=== PATIENT | female | born 1945 | race Caucasian/White ===

== ENCOUNTER 2024-09-23 17:29 | Inpatient (IN) | payer OTHER, MEDICARE ==
[2024-09-23 22:07] LABS: BASO % 0.9 % (0-2.0); EOS % 1.2 % (0-4.5); HEMATOCRIT 44.6 % (32.4-45.2); HEMOGLOBIN 14.3 GM/dL (10.7-15.3); LYMPH % 17.7 % (8-40); MCH 28.9 pg (25.7-33.7); MCHC 32.1 g/dl (32.0-36.0); MEAN CELL VOLUME 90.3 fl (80-96); MONO % 8.1 % (3.8-10.2); NEUT % 72.1 % (42.8-82.8); PLATELET COUNT 251 10^3/uL (134-434); RBC 4.94 M/mm3 (3.60-5.2); RDW 14.5 % (11.6-15.6); WHITE BLOOD COUNT 11.4 K/mm3 (4.0-10.0)
[2024-09-23 22:25] LABS: POTASSIUM 3.9 mmol/L (3.5-5.1)
[2024-09-23 22:27] LABS: CALCIUM 9.3 mg/dL (8.5-10.1)
[2024-09-23 22:28] LABS: ALBUMIN 3.5 g/dl (3.4-5.0); BLOOD UREA NITROGEN 18.4 mg/dL (7-18); MAGNESIUM 2.1 mg/dL (1.8-2.4)
[2024-09-23 22:31] LABS: BILIRUBIN,TOTAL 0.6 mg/dL (0.2-1); CREATININE 0.9 mg/dL (0.55-1.3); TOT PROT 6.5 g/dl (6.4-8.2)
[2024-09-24 00:49] LABS: EPI CELLS 6 /uL (0-25.1); HYALINE CASTS 0 /uL (0-3.1); PH,URINE 7.5 (5.0-8.0); URINE APPEARANCE CLEAR; URINE BACTERIA 24 /uL (0-1359); URINE BILIRUBIN NEGATIVE (NEGATIVE); URINE COLOR YELLOW; URINE GLUCOSE (UA) NEGATIVE (NEGATIVE); URINE KETONE NEGATIVE (NEGATIVE); URINE LEUK ESTERASE TRACE (NEGATIVE); URINE NITRITE NEGATIVE (NEGATIVE); URINE PROTEIN NEGATIVE (NEGATIVE); URINE RBC 9 /uL (0-23.9); URINE WBC 15 /uL (0-25.8)
[2024-09-24] MEDS: oxyCODONE HCL 5 MG TABLET PO ONE (05:13)
[2024-09-24] MEDS: ACETAMINOPHEN 325 MG TABLET (FP) PO ONE (05:14)
[2024-09-24 07:49] LABS: CHLORIDE 107 mmol/L (98-107); POTASSIUM 3.6 mmol/L (3.5-5.1); SODIUM 139 mmol/L (136-145)
[2024-09-24 07:55] LABS: CALCIUM 9.1 mg/dL (8.5-10.1)
[2024-09-24 07:56] LABS: ALBUMIN 3.5 g/dl (3.4-5.0); ANION GAP 8 mmol/L (4-13); BLOOD UREA NITROGEN 14.6 mg/dL (7-18); CO2 24 mmol/L (21-32); GLUCOSE,RANDOM 88 mg/dL (74-106)
[2024-09-24 07:59] LABS: CREATININE 0.8 mg/dL (0.55-1.3); PHOSPHOROUS 2.9 mg/dL (2.5-4.9); SGOT/AST 65 U/L (15-37); SGPT/ALT 115 U/L (13-61)
[2024-09-24 08:00] LABS: BILIRUBIN,TOTAL 0.8 mg/dL (0.2-1)
[2024-09-24 08:01] LABS: TOT PROT 6.5 g/dl (6.4-8.2)
[2024-09-24 08:02] LABS: ALK PHOS 154 U/L (45-117)
[2024-09-24 08:15] LABS: BASO % 0.4 % (0-2.0); EOS % 1.1 % (0-4.5); HEMATOCRIT 44.3 % (32.4-45.2); HEMOGLOBIN 14.9 GM/dL (10.7-15.3); MCH 29.9 pg (25.7-33.7); MCHC 33.7 g/dl (32.0-36.0); MEAN CELL VOLUME 88.8 fl (80-96); MEAN PLT VOLUME 9.1 fl (7.5-11.1); MONO % 8.7 % (3.8-10.2); NEUT % 70.8 % (42.8-82.8); PLATELET COUNT 234 10^3/uL (134-434); RBC 4.99 M/mm3 (3.60-5.2); RDW 14.1 % (11.6-15.6); WHITE BLOOD COUNT 10.9 K/mm3 (4.0-10.0)
[2024-09-24] MEDS: FLUoxetine HCL 20 MG CAPSULE PO SCH (12:30)
[2024-09-24] MEDS: ENOXAPARIN NA (PORCINE) 40 MG/0.4 ML DISP.SYRIN SQ SCH (12:30)
[2024-09-24] MEDS: amLODIPine BESYLATE 2.5 MG TABLET (FP) PO SCH (12:31)
[2024-09-24] MEDS ORDERED: ALPRAZolam 0.25 MG TABLET PO PRN (14:55)
[2024-09-24] MEDS: MINERAL OIL/PET HY-PHL TOPICAL OINTMENT 454 GM JAR TP SCH (19:17)
[2024-09-24] MEDS: MIRTAZAPINE 15 MG TABLET (FP) PO SCH (21:49)
[2024-09-24] MEDS: ALPRAZolam 0.25 MG TABLET PO PRN (21:50)
[2024-09-24] MEDS: QUEtiapine FUMARATE 25 MG TABLET PO SCH (21:50)
[2024-09-24] MEDS ORDERED: ROSUVASTATIN CA 20 MG TABLET PO SCH (22:00)
[2024-09-25 07:50] LABS: HEMATOCRIT 44.1 % (32.4-45.2); HEMOGLOBIN 14.9 GM/dL (10.7-15.3); MCH 30.2 pg (25.7-33.7); MCHC 33.8 g/dl (32.0-36.0); MEAN CELL VOLUME 89.4 fl (80-96); MEAN PLT VOLUME 9.3 fl (7.5-11.1); PLATELET COUNT 222 10^3/uL (134-434); RBC 4.93 M/mm3 (3.60-5.2); RDW 14.4 % (11.6-15.6); WHITE BLOOD COUNT 9.1 K/mm3 (4.0-10.0)
[2024-09-25 08:09] LABS: POTASSIUM 3.9 mmol/L (3.5-5.1)
[2024-09-25 08:16] LABS: ALBUMIN 3.3 g/dl (3.4-5.0); BLOOD UREA NITROGEN 17.2 mg/dL (7-18)
[2024-09-25 08:19] LABS: BILIRUBIN,TOTAL 0.7 mg/dL (0.2-1); CREATININE 0.8 mg/dL (0.55-1.3); TOT PROT 6.1 g/dl (6.4-8.2)
[2024-09-25] MEDS: oxyCODONE HCL 5 MG TABLET PO PRN (09:08)
[2024-09-25] MEDS: QUEtiapine FUMARATE 25 MG TABLET PO SCH (23:33)
[2024-09-26] MEDS: MELATONIN 5 MG TABLETS PO ONE (00:55)
[2024-09-26 08:00] LABS: ALBUMIN 3.2 g/dl (3.4-5.0); CALCIUM 9.1 mg/dL (8.5-10.1)
[2024-09-26 08:01] LABS: BLOOD UREA NITROGEN 25.8 mg/dL (7-18)
[2024-09-26 08:04] LABS: CREATININE 0.9 mg/dL (0.55-1.3)
[2024-09-26 08:06] LABS: TOT PROT 5.8 g/dl (6.4-8.2)
[2024-09-26 08:07] LABS: BILIRUBIN,TOTAL 0.7 mg/dL (0.2-1)
[2024-09-26 15:40] VITALS: RESP 18
[2024-09-26] MEDS: ALPRAZolam 0.25 MG TABLET PO PRN (16:23)
[2024-09-26] MEDS: PATIENT'S OWN MEDICATION (NON-FORMULARY) (Tizanidine Hcl [Tizanidine Hcl] 2 MG Tablet) PO SCH (17:53)
[2024-09-26] MEDS: oxyCODONE HCL 5 MG TABLET PO PRN (20:41)
[2024-09-26] MEDS: MIRTAZAPINE 15 MG TABLET (FP) PO SCH (22:13)
[2024-09-27 07:55] VITALS: BMI 19.7
[2024-09-27] MEDS: amLODIPine BESYLATE 2.5 MG TABLET (FP) PO SCH (10:54)
[2024-09-27] MEDS: ENOXAPARIN NA (PORCINE) 40 MG/0.4 ML DISP.SYRIN SQ SCH (10:54)
[2024-09-27] MEDS: FLUoxetine HCL 20 MG CAPSULE PO SCH (10:54)
[2024-09-27] MEDS: MINERAL OIL/PET HY-PHL TOPICAL OINTMENT 454 GM JAR TP SCH (10:54)
[2024-09-27] MEDS: NICOTINE POLACRILEX 2 MG GUM BUC PRN (22:20)
[2024-09-28] MEDS: LIDOCAINE 5% TOPICAL PATCH TP SCH (11:44)
[2024-09-28] MEDS: POLYETHYLENE GLYCOL (HEALTHYLAX) 3350 17 GM PACKET PO SCH (14:12)
[2024-09-28] MEDS: oxyCODONE HCL 5 MG TABLET PO PRN (21:00)
[2024-09-28] MEDS: LIDOCAINE PATCH REMOVAL MC SCH (21:00)
[2024-09-29] MEDS: hydrOXYzine PAMOATE 25 MG CAPSULE (FP) PO ONE (20:15)
[2024-09-30] MEDS: CycloBENZAprine HCL 5 MG TABLET PO SCH (10:30)
[2024-10-01] MEDS: QUEtiapine FUMARATE 25 MG TABLET PO ONE (01:25)
[2024-10-01] MEDS: MIRTAZAPINE 15 MG TABLET (FP) PO ONE (01:25)
[2024-10-01] MEDS: PATIENT'S OWN MEDICATION (NON-FORMULARY) (Tizanidine Hcl [Tizanidine Hcl] 2 MG) PO SCH (04:48)
[2024-10-01 10:41] LABS: POTASSIUM 3.7 mmol/L (3.5-5.1)
[2024-10-01 10:43] LABS: ALBUMIN 3.3 g/dl (3.4-5.0)
[2024-10-01 10:44] LABS: BLOOD UREA NITROGEN 17.7 mg/dL (7-18); CALCIUM 9.2 mg/dL (8.5-10.1)
[2024-10-01 10:48] LABS: CREATININE 0.9 mg/dL (0.55-1.3)
[2024-10-01 10:49] LABS: BILIRUBIN,TOTAL 0.7 mg/dL (0.2-1); TOT PROT 6.3 g/dl (6.4-8.2)
[2024-10-01] MEDS: CALCIUM CARBONATE 650 MG TABLET PO ONE (22:57)
[2024-10-02 09:55] VITALS: BP 119/61; PULSE 82; TEMP 98.3
== END 2024-10-02 10:00 | disposition home or self-care (01) | DRG 641 ==
LOC: JER 17:29 → INTOOBSV 23:16 → JERBED 23:16 → J4W 09-24 02:48 → OBSVTOIN 09-24 13:56 → J5S 09-25 17:47 → J4W 09-25 17:50 → J5S 09-26 15:52 → J6S 09-30 10:50
PROVIDERS: ADMIT Internal Medicine; ATTEND Internal Medicine
DX: E86.0 Dehydration (principal); F11.20 Opioid dependence, uncomplicated; E44.0 Moderate protein-calorie malnutrition; Z68.1 Body mass index [BMI] 19.9 or less, adult; R42 Dizziness and giddiness; I10 Essential (primary) hypertension; E78.5 Hyperlipidemia, unspecified; F41.9 Anxiety disorder, unspecified; R79.89 Other specified abnormal findings of blood chemistry; R74.01 Elevation of levels of liver transaminase levels; F32.A Depression, unspecified; K75.81 Nonalcoholic steatohepatitis (NASH); W19.XXXA Unspecified fall, initial encounter; Y93.89 Activity, other specified; Y92.009 Unspecified place in unspecified non-institutional (private) residence as the place of occurrence of the external cause; Y99.8 Other external cause status
CPT/HCPCS: 36415; 70450-TC; 72170-TC-FY; 72192-TC; 76700-TC; 80053; 80307; 81003; 82550; 83735; 84100; 84484; 85025; 85027; 86704; 86708; 87086; 87340; 87517; 87522; 93005; 93010; 97116-GP; 97161-GP; 99285-25; G0378